=== PATIENT | male | born 1955 | race Caucasian/White ===

== ENCOUNTER → 2021-01-15 | Day surgery (SDC) | payer MEDICARE, OTHER ==
[~2021-01-15] MED LIST: ALDACTONE25 MG PO; AMIODARONE HCL200 MG PO; ASPIRIN EC81 MG PO; COREG 6.25MG6.25 MG PO; ENTRESTO 24 MG1 EACH PO; IBU-200200 MG PO; LASIX40 MG PO; LIPITOR40 MG PO; MIRALAX17 GM PO; TYLENOL PM EX-1 EACH PO
[2021-01-15 08:41] LABS: BUN/CREAT RATIO (CALC) 12.2 RATIO; CREATININE 1.47 mg/dL (0.67-1.17); POTASSIUM 3.7 mmol/L (3.5-5.1)
== END | disposition home or self-care (01) ==
LOC: FAS 07:28
PROVIDERS: Surgery
DX: K60.2 Anal fissure, unspecified (principal); K64.1 Second degree hemorrhoids; I25.10 Atherosclerotic heart disease of native coronary artery without angina pectoris; I10 Essential (primary) hypertension; I25.2 Old myocardial infarction; J44.9 Chronic obstructive pulmonary disease, unspecified; K21.9 Gastro-esophageal reflux disease without esophagitis; E78.5 Hyperlipidemia, unspecified; G47.30 Sleep apnea, unspecified; E66.9 Obesity, unspecified; M19.90 Unspecified osteoarthritis, unspecified site; R94.6 Abnormal results of thyroid function studies; Z20.822 Contact with and (suspected) exposure to COVID-19; Z86.010 Personal history of colon polyps; Z79.899 Other long term (current) drug therapy; Z95.1 Presence of aortocoronary bypass graft; Z95.4 Presence of other heart-valve replacement; Z87.891 Personal history of nicotine dependence; Z99.89 Dependence on other enabling machines and devices; Z98.890 Other specified postprocedural states
CPT/HCPCS: 36415; 80048; 93005; J0585-JG; J0694; J1100; J2250; J2405; J2704; J3010; J7120